=== PATIENT | female | born 1990 | race Caucasian/White ===

== ENCOUNTER 2017-03-01 11:53 | Emergency (ER) | payer BC ==
[2017-03-01 12:11] VITALS: TEMP 98.4
--- NOTE | 2017-03-01 12:22 | EDPHY ---
H & P HPI/ROS: Chief complaint. Cough HPI. 26-year-old female with 2-3 day history of coughing and wheezing. Cough is occasionally productive of greenish sputum. Slight shortness of breath. Tightness across her anterior chest. Symptoms are worse with lying down. Does not think she has been running a fever. No known exposure to Infectious Disease. Travel to [place] over [place]. Patient is 23 weeks . No history of asthma or lung problems. ROS Constitutional. no fever/chills, no weakness Eyes. no problems with vision ENT. no sore throat, no nasal drainage Cardiovascular. Chest tightness Respiratory. Shortness of breath and cough Abdominal. no abdominal pain, no nausea/vomiting, no diarrhea . no problems urinating MS. no calf pain/swelling, no neck/back pain, no joint pain Skin. no rash Lymph. no swollen glands Neuro. no headache, no dizziness, no difficulty walking or with speech Past Medical/Surgical History: 23 weeks , appendectomy Social History: , nonsmoker, no alcohol Smoking Status: Never smoked Physical Exam: General Appearance: Alert well-developed female mild to moderate distress vital signs show the patient be afebrile. Heart rate 120. O2 saturation room air 91% Eyes: Pupils equal and round no pallor or injection. ENT, tympanic membranes are normal. Pharynx without injection. Mucous membranes are moist Respiratory: No retractions but inspiratory expiratory wheezing and rhonchi Cardiovascular: Regular rate and rhythm. Gastrointestinal: Abdomen is soft and nontender, no masses, bowel sounds normal. Neurological: Awake and alert, sensory and motor exams grossly normal. Skin: Warm and dry, no rashes. Musculoskeletal: Neck is supple nontender. Extremities symmetrical, full range of motion. Psychiatric: Patient is oriented X 3, there is no agitation. Constitutional: Initial Vital Signs Temperature (C) 36.9 C 03/01/17 12:06 Heart Rate 120 H 03/01/17 12:06 Respiratory Rate 24 H 03/01/17 12:06 Blood Pressure 123/78 H 03/01/17 12:06 O2 Sat (%) 91 L 03/01/17 12:06 O2 Delivery Mode Room Air Allergies/Adverse Reactions: No Known Allergies Allergy (Unverified 03/01/17 12:06) Home Medications: Medication Instructions Recorded Albuterol Hfa Anes Only [Proair 2 puffs IH QID PRN #1 mdi 03/01/17 Hfa Icu (*)] Azithromycin [Zithromax] 250 mg PO DAILY #6 tab 03/01/17 Medical Decision Making Procedures: DuoNeb updraft ED Course/Re-evaluation: Re-evaluation after the updraft and patient's lungs now sound clear. No wheezes or rales or rhonchi. She is speaking in full sentences. No stridor Re-examination of lungs at 1:15 p.m.. Patient has clear lung lowry and again is speaking in full sentences Patient and I discussed laboratory evaluation, treatment plan including criteria for return importance of follow-up and further evaluation. She expresses understanding and agreement Differential Diagnosis: Considered pneumonia, bronchitis, influenza. - Data Points Laboratory Results: 03/01/17 12:55 Influenza A,B Rapid NEGATIVE FOR FLU (NEGATIVE) Medications Given: Discontinued Medications Albuterol/Ipratropium (Duoneb) 3 ml IH EDNOW ONE Stop: 03/01/17 12:31 Last Admin: 03/01/17 12:32 Dose: 3 ml Departure - Departure Disposition: Home, Routine, Self-Care Clinical Impression: Acute bronchitis Qualifiers: Bronchitis organism: unspecified organism Qualified Code(s): J20.9 - Acute bronchitis, unspecified Condition: Good Instructions: Acute Bronchitis (ED) Additional Instructions: Drink plenty of fluids and stay hydrated. Zithromax is antibiotic. Albuterol inhaler using 2 puffs every 4 hr to help with breathing and cough. Return for worsening symptoms. Recheck in 2 days if not improved Prescriptions: Albuterol Hfa Anes Only [Proair Hfa Icu (*)] 2 puffs IH QID PRN #1 mdi PRN Reason: Short Of Breath/Dyspnea Azithromycin [Zithromax] 250 mg PO DAILY #6 tab
[2017-03-01] MEDS ORDERED: IPRATROPIUM/ALBUTEROL 3 ML DEYVIAL IH ONE (12:30)
[2017-03-01 13:51] VITALS: BP 100/64; PULSE 97; RESP 20; O2SAT 97
== END 2017-03-01 13:49 | disposition home or self-care (01) ==
LOC: CED 11:53
DX: O99.512 Diseases of the respiratory system complicating pregnancy, second trimester (principal); J20.9 Acute bronchitis, unspecified; Z3A.23 23 weeks gestation of pregnancy
CPT/HCPCS: 87400-PO